=== PATIENT | female | born 1960 | race Caucasian/White ===

== ENCOUNTER → 2021-02-02 09:32 | Outpatient (CLI) | payer OTHER, SELFPAY ==
[2021-02-02 11:25] LABS: COVID19 -Nasal RAPID Negative (Negative)
== END ==
PROVIDERS: Visit Provider Physician Assistant
DX: Z01.812 Encounter for preprocedural laboratory examination (principal); Z20.822 Contact with and (suspected) exposure to COVID-19
CPT/HCPCS: 87635

== ENCOUNTER 2021-02-04 11:48 | Day surgery (SDC) | payer OTHER, SELFPAY ==
--- NOTE | 2021-02-04 11:34 | PM.HP.1 ---
History of Present Illness History of Present Illness Date Patient Seen: 02/04/21 Time Patient Seen: 11:34 Chief complaint: [facility] [place] Narrative: 60 Years Old Female seen today for consideration of a screening colonoscopy. Complaining of constipation x1 year. She does have a bowel movement every day but it is hard. No melena or hematochezia. Associated bloating. Denies mucus. She is not exercising per her normal routine. 1-2 lifetime colonoscopies, reportedly normal, records not available at time of dictation. Otherwise, there have been no lower GI symptoms suggesting disease such as bleeding, abdominal pain or anemia. There's been no family history of colon cancer or colon polyps. Overall health issues have been stable, including no major cardiac events for at least 6 weeks. Past Medical History: Hypothyroidism Hyperlipidemia glaucoma Dyspepsia Hematuria Past Surgical History: Hysterectomy 2008 Toe Surgery Colonoscopy x 2, normal breast augmentation Family History: Father: Parkinson's Mother: at 70- breast cancer, lung cancer, [place] Siblings: Crystal - at 63- pneumonia Flakito-heart disease Jorge- healthy Sister-healthy Social History: Children: 2 Daughters Household Members: Partner Ricky Lopez Home Medications and Allergies Home Medications Medication Instructions Recorded Confirmed Type atorvastatin 40 mg PO DAILY 02/04/21 02/04/21 History Allergies Allergy/AdvReac Type Severity Reaction Status Date / Time No Known Drug Allergies Allergy Verified 02/04/21 12:22 Review of Systems Review of Systems Narrative: See HPI. Exam Narrative Exam Narrative: General: well developed, well nourished, in no acute distress, Head: normocephalic and atraumatic, Lungs: normal respiratory effort, clear bilaterally to auscultation, no wheezes rales or rhonchi. Heart: normal rate and regular rhythm, no murmurs, rubs, gallops, or clicks, Abdomen: abdomen soft and non-tender without masses, organomegaly, or abdominal wall hernias, bowel sounds positive. Skin: intact without suspicious lesions or rashes, Psych: alert and cooperative; normal mood and affect; normal attention span and concentration; cognition, remote and recent memory appear to be intact, Assessment & Plan Assessment & Plan narrative: 1 Screening for colon cancer 2. Constipation Plan: Colonoscopy The nature and character of the procedure as well as anticipated results were discussed. The possibility of not completing the procedure was also discussed. Possible complications including aspiration pneumonia, bleeding, perforation and reaction to medications either for sedation or preparation and missed lesions were discussed. Questions were answered and proceeding to the colonoscopy was elected. Informed consent signed. I sincerely appreciate the referral allowing me to participate in this patient's care. Please contact me with any questions or concerns. Orders:
--- NOTE | 2021-02-04 11:37 | PM.OP.ENDO ---
Operative Date/Time/Diagnoses Date of procedure: 02/04/21 Time of procedure: 11:37 Procedure Notes SCOAP/Timeout: 1:33 p.m. Procedure in detail: ENDOSCOPIST: Sabina Ackerman MD Sedation RN: Prema Madrigal RN Sedation start time: 1:34 p.m. Sedation end time: 1:50 p.m. PROCEDURE: Colonoscopy INDICATIONS: 1. Screening for colon cancer 2. Constipation MEDICATION: Levsin 0.125 mg sublingual, incremental doses of Versed and fentanyl until appropriate level sedation achieved. ASA CLASS: 2 CECAL WITHDRAWAL TIME: 6 minutes COMPLICATIONS: None. EXTENT OF PROCEDURE: Cecum. QUALITY OF PREP: Good with portions of liquid stool. PROCEDURE: Prior to insertion of the colonoscope, a digital rectal examination was accomplished with circumferential palpation of the distal rectal mucosa without significant findings being noted. The high-definition pediatric colonoscope was passed into the rectum in the usual fashion and advanced over to the cecum without difficulty. The ileocecal valve, appendiceal stoma, and medial wall all could be inspected and no abnormalities were seen. ASCENDING COLON: As the colonoscope was withdrawn, care was taken to expose and inspect the haustral folds and no abnormalities were seen. HEPATIC FLEXURE: Normal, no polyps, diverticula or other abnormalities. TRANSVERSE COLON: Normal, no polyps, diverticula or other abnormalities. DESCENDING COLON: Minor diverticulosis, otherwise normal, or other abnormalities. SIGMOID COLON: Minor diverticulosis, otherwise normal, or other abnormalities. RECTUM: Normal. J maneuver was produced. There was no significant perianal disease. The J maneuver was broken. The remainder of the rectum was inspected and there was no external hemorrhoid disease. The scope was withdrawn. IMPRESSION: 1. Normal colonoscopy 2. Minor diverticulosis, left-sided PLAN: 1. Repeat colonoscopy in 10 years. The possibility of a missed lesion including a malignancy has been discussed with the patient previously. Potential alarm symptoms have been discussed and should be reported immediately.
[2021-02-04 12:27] VITALS: BP 143/84; PULSE 72; RESP 16; TEMP 36.3; O2SAT 98; BMI 19.1
[2021-02-04] MEDS: LACTATED RINGERS 1,000 ML 200 ML IV (12:49)
[2021-02-04] MEDS: HYOSCYAMINE 0.125 MG TABLET PO (12:54)
[2021-02-04] MEDS: MIDAZOLAM 5 MG/5 ML VIAL IV (13:37)
[2021-02-04] MEDS: fentaNYL 250 MCG/5 ML INJ IV (13:37)
[2021-02-04 13:56] VITALS: BP 125/98; PULSE 68; RESP 12; TEMP 36.7; O2SAT 97
[2021-02-04 14:01] VITALS: BP 126/82; PULSE 64; RESP 13; O2SAT 96
[2021-02-04 14:06] VITALS: BP 137/73; PULSE 69; RESP 12; O2SAT 97
[2021-02-04 14:11] VITALS: BP 138/63; PULSE 67; RESP 12; TEMP 36.7; O2SAT 97
[2021-02-04 14:14] VITALS: BP 138/73; PULSE 69; RESP 12; TEMP 36.7; O2SAT 97
== END 2021-02-04 14:40 | disposition home or self-care (01) ==
PROVIDERS: Referring Provider Student in an Organized Health Care Education/Training Program; Visit Provider Student in an Organized Health Care Education/Training Program
PROC: 0DJD8ZZ Inspection of Lower Intestinal Tract, Via Natural or Artificial Opening Endoscopic (ICD-10-PCS; CPT 45378; principal; 2021-02-04 13:00)
DX: Z12.11 Encounter for screening for malignant neoplasm of colon (principal); K59.00 Constipation, unspecified; E03.9 Hypothyroidism, unspecified; E78.5 Hyperlipidemia, unspecified; K57.30 Diverticulosis of large intestine without perforation or abscess without bleeding
CPT/HCPCS: 45378; J2250; J3010

== ENCOUNTER 2021-04-18 09:33 | Emergency (ER) | payer OTHER, SELFPAY ==
[2021-04-18 09:46] VITALS: BP 202/93; PULSE 72; RESP 18; TEMP 36.3; O2SAT 98; BMI 20.1
--- NOTE | 2021-04-18 10:04 | DI.CT.S_ITS ---
PROCEDURE: CT HEAD/BRAIN WO CON INDICATIONS: fall hit head 2 weeks ago, now dizziness and more falls left side TECHNIQUE: Noncontrast 4.5 mm thick angled axial sections acquired from the foramen magnum to the vertex, with coronal and sagittal reformats. For radiation dose reduction, the following was used: automated exposure control, adjustment of mA and/or kV according to patient size. COMPARISON: None. FINDINGS: Image quality: Excellent. CSF spaces: Basal cisterns are patent. No extra-axial fluid collections. The ventricles are mildly prominent but symmetric in size and shape. Brain: No intracranial bleeds or masses. There is mild cerebral volume loss for age, with resultant ventricular and sulcal prominence. There are mild periventricular and deep white matter chronic small vessel ischemic changes. There is intracranial internal carotid artery atherosclerosis. Skull and face: Calvarium and visualized facial bones appear intact, without suspicious lesions. Sinuses: Visualized sinuses and mastoids are clear. IMPRESSION: 1. No acute intracranial abnormalities. 2. Cerebral volume loss and chronic microvascular ischemic changes. Dictated by: Thao Jett M.D. on 04/18/2021 at 10:39 Approved by: Thao Jett M.D. on 04/18/2021 at 10:45
[2021-04-18 10:29] LABS: Add Manual Diff / Slide Review NO; Basophils Absolute Auto 0 /uL (0-100); Basophils Percent Auto 0.8 % (0-2); Eosinophils Absolute Auto 200 /uL (0-450); Eosinophils Percent Auto 4.5 % (2-4); Hematocrit 41.9 % (36-46); Lymphocytes Absolute Auto 1400 /uL (1100-4500); Lymphocytes Percent Auto 27.7 % (25-40); Mean Corpuscular HGB Conc 33.5 % (30-36); Mean Corpuscular Hemoglobin 29.8 PG (26-34); Monocytes Absolute Auto 200 /uL (0-900); Neutrophils Absolute Auto 3200 /uL (1500-7000); Platelet Count 186 X10^3/uL (150-400); Prothrombin Time 11.3 SECONDS (10.1-12.7); Red Blood Cell Count 4.71 X10^6/uL (4.0-5.2); Red Cell Distribution Width 13.3 % (11.6-14.8); White Blood Cell Count 5.1 X10^3/uL (4.5-11.0)
[2021-04-18 10:34] LABS: Alanine Aminotransferase 29 IU/L (<35); Albumin 4.5 g/dL (3.5-5.0); Albumin Globulin Ratio 1.7 (1.0-2.8); Alkaline Phosphatase 71 U/L (38-126); Aspartate Aminotransferase 37 IU/L (14-36); BUN Creatinine Ratio 17.5 (6-22); Bilirubin Total 1.3 mg/dL (0.2-1.3); Blood Urea Nitrogen 14 mg/dL (7-17); Calcium 9.7 mg/dL (8.4-10.2); Carbon Dioxide 32 mmol/L (22-32); Chloride 105 mmol/L (98-107); Estimated Glomerular Filt Rate > 60.0 mL/min (>60); Globulin 2.7 g/dL (1.7-4.1); Glucose 95 mg/dL (80-110); HEMOLYSIS < 15 (0-50); Potassium 3.8 mmol/L (3.4-5.1); Sodium 143 mmol/L (137-145); Total Protein 7.2 g/dL (6.3-8.2)
--- NOTE | 2021-04-18 10:38 | ED_ITS ---
HPI - Dizziness General Chief Complaint: Dizziness Stated Complaint: Vertigo x1day Time Seen by Provider: 04/18/21 10:38 Source: patient Mode of arrival: Ambulatory Limitations: no limitations History of Present Illness HPI Narrative: The patient awoke in the middle of the night with dizziness and nausea. She was not previously ill. She had no headache, sinus congestion, or ear discomfort. Other than cerumen issues, she has no chronic ear problems. She has no history of CVA/TIA. She does have hyperlipidemia. She has not experienced chest pain or palpitations with current symptoms. She has no confusion, no visual changes, no peripheral weakness or numbness. Nausea vomiting is relieved by lying still. Related Data Home Medications Medication Instructions Recorded Confirmed atorvastatin 20 mg tablet 20 mg PO BEDTIME 04/18/21 04/18/21 brimonidine 0.2 %-timolol 0.5 % 1 drp EYE-LEFT BID 04/18/21 04/18/21 eye drops (Combigan) latanoprost 0.005 % eye drops 1 drp EYE-LEFT BID 04/18/21 04/18/21 levothyroxine 75 mcg tablet 75 mcg PO QAM 04/18/21 04/18/21 Previous Rx's Medication Instructions Recorded meclizine 25 mg tablet 25 mg PO TID-QID PRN #30 tab 04/18/21 Allergies Allergy/AdvReac Type Severity Reaction Status Date / Time No Known Drug Allergies Allergy Verified 04/18/21 09:52 Review of Systems Constitutional Constitutional: Denies body ache(s), Denies chills, Denies fatigue, Denies fever(s) and Denies weakness Eyes Eyes: Denies change in vision and Denies loss of vision ENT Ears, Nose, Mouth, and Throat: Reports as per HPI and Reports dizziness Cardiovascular Cardiovascular: Denies chest pain, Denies rapid heart rate, Denies irregular heart rhythm and Denies dyspnea Respiratory Respiratory: Denies chest congestion, Denies cough and Denies dyspnea Gastrointestinal Gastrointestinal: Reports as per HPI, Denies abdominal pain, Reports nausea and Reports vomiting Genitourinary Comments: No symptoms. Musculoskeletal Comments: No focal numbness weakness. Neurologic Neurologic: Denies confusion, Reports dizziness, Denies lack of coordination, Denies localized weakness, Denies loss of vision and Denies weakness Psychiatric Psychiatric: Denies confusion Endocrine Endocrine: Denies fatigue Patient History Medical History Glaucoma High cholesterol Hypothyroid Social History household members: significant other Smoking Status: Never smoker alcohol intake: current Smoking Status: Never smoker alcohol intake frequency: holidays/special occasions only Substance Use Type: does not use Exam Initial Vital Signs Initial Vital Signs: Vital Signs Temperature 97.3 F L 04/18/21 09:46 Pulse Rate 72 04/18/21 09:46 Respiratory Rate 18 04/18/21 09:46 Blood Pressure 202/93 H 04/18/21 09:46 Pulse Oximetry 98 04/18/21 09:46 Const General: cooperative, healthy appearing and comfortable HENMT Head: normal to inspection, normocephalic and atraumatic Ears: TM's normal bilaterally Nose: nasal mucous membranes and turbinates normal Face and sinus: normal facial exam Mouth: oral mucosae normal Throat: posterior oropharynx normal Eyes Visual Newton: normal visual newton by confrontation Conjunctivae: conjunctivae normal Sclera: sclerae normal Pupils: PERRL EOM: EOM intact bilaterally Neck Neck: normal visual inspection Chest Chest: normal inspection of the chest Resp Effort & Inspection: normal respiratory effort Auscultation: clear to auscultation bilaterally Cardio Rate: regular rate Rhythm: regular rhythm Heart Sounds: S1 normal, S2 normal and no murmurs GI Inspection: normal to inspection Palpation: soft Auscultation: normal bowel sounds Rectal Exam: visual inspection normal Back/Spine/Pelvis Back: normal to inspection Skin General: no rashes or lesions noted Neuro General: patient alert, patient awake and patient oriented x3 Cranial Nerves: CN's II-XI intact bilaterally Motor: muscle tone normal throughout Sensory Exam: no sensory deficits noted Extrem General: normal to inspection, full ROM and no pedal edema Psych Mental Status: mental status grossly normal Course Course Course Narrative: The patient has improved significantly with meclizine. Her brain CT did revealed microvascular changes, but no acute findings. Labs and EKG findings were otherwise benign. She is discharged on meclizine, with a 2nd recommendation of baby aspirin daily. Orders Ordered: ED Orders 04/18/21 10:04 CT head/brain wo con Stat EKG-12 Lead Stat 04/18/21 10:18 Complete Blood Count AUTO DIFF Stat Comprehensive Metabolic Panel Stat Prothrombin Time INR Stat Troponin I Stat 04/18/21 11:23 Urine Microscopic Stat Discontinued Medications Meclizine HCl (Meclizine Hcl 12.5 Mg Tablet) 50 mg PO NOW ONE Stop: 04/18/21 10:58 Last Admin: 04/18/21 11:08 Dose: 50 mg Documented by: ANNA Vital Signs Vital signs: Vital Signs - 8 hr 04/18/21 09:46 04/18/21 12:10 Temperature 97.3 F L Pulse Rate 72 69 Respiratory Rate 18 Blood Pressure 202/93 H 185/90 H Pulse Oximetry 98 97 MDM - Dizziness Lab Data Result diagrams: 04/18/21 10:18 04/18/21 10:18 Labs: Lab Results 04/18/21 04/18/21 04/18/21 Range/Units 10:18 10:18 10:18 WBC 5.1 (4.5-11.0) X10^3/uL RBC 4.71 (4.0-5.2) X10^6/uL Hgb 14.0 (12.0-16.0) g/dL Hct 41.9 (36-46) % MCV 89.0 (80-100) fL MCH 29.8 (26-34) PG MCHC 33.5 (30-36) % RDW 13.3 (11.6-14.8) % Plt Count 186 (150-400) X10^3/uL Neut % (Auto) 63.0 (50-75) % Lymph % (Auto) 27.7 (25-40) % Harvey % (Auto) 4.0 (3-14) % Eos % (Auto) 4.5 H (2-4) % Baso % (Auto) 0.8 (0-2) % Neut # (Auto) 3200 (8709-4509) /uL Lymph # (Auto) 1400 (5006-4138) /uL Harvey # (Auto) 200 (0-900) /uL Eos # (Auto) 200 (0-450) /uL Baso # (Auto) 0 (0-100) /uL PT 11.3 (10.1-12.7) SECONDS INR 1.0 (0.9-1.3) Sodium 143 (137-145) mmol/L Potassium 3.8 (3.4-5.1) mmol/L Chloride 105 (98-107) mmol/L Carbon Dioxide 32 (22-32) mmol/L BUN 14 (7-17) mg/dL Creatinine 0.80 (0.52-1.04) mg/dL Estimated GFR > 60.0 (>60) mL/min BUN/Creatinine Ratio 17.5 (6-22) Glucose 95 (80-110) mg/dL Calcium 9.7 (8.4-10.2) mg/dL Total Bilirubin 1.3 (0.2-1.3) mg/dL AST 37 H (14-36) IU/L ALT 29 (<35) IU/L Alkaline Phosphatase 71 (38-126) U/L Troponin I < 0.012 (0.01-0.034) ng/mL Total Protein 7.2 (6.3-8.2) g/dL Albumin 4.5 (3.5-5.0) g/dL Globulin 2.7 (1.7-4.1) g/dL Albumin/Globulin Ratio 1.7 (1.0-2.8) Urine RBC (0-5/HPF) Urine WBC (0-5/HPF) Ur Squamous Epith Cells (0-5/HPF) Urine Bacteria (None) Ur Culture Indicated? 04/18/21 Range/Units 11:23 WBC (4.5-11.0) X10^3/uL RBC (4.0-5.2) X10^6/uL Hgb (12.0-16.0) g/dL Hct (36-46) % MCV (80-100) fL MCH (26-34) PG MCHC (30-36) % RDW (11.6-14.8) % Plt Count (150-400) X10^3/uL Neut % (Auto) (50-75) % Lymph % (Auto) (25-40) % Harvey % (Auto) (3-14) % Eos % (Auto) (2-4) % Baso % (Auto) (0-2) % Neut # (Auto) (7309-8053) /uL Lymph # (Auto) (7396-5256) /uL Harvey # (Auto) (0-900) /uL Eos # (Auto) (0-450) /uL Baso # (Auto) (0-100) /uL PT (10.1-12.7) SECONDS INR (0.9-1.3) Sodium (137-145) mmol/L Potassium (3.4-5.1) mmol/L Chloride (98-107) mmol/L Carbon Dioxide (22-32) mmol/L BUN (7-17) mg/dL Creatinine (0.52-1.04) mg/dL Estimated GFR (>60) mL/min BUN/Creatinine Ratio (6-22) Glucose (80-110) mg/dL Calcium (8.4-10.2) mg/dL Total Bilirubin (0.2-1.3) mg/dL AST (14-36) IU/L ALT (<35) IU/L Alkaline Phosphatase (38-126) U/L Troponin I (0.01-0.034) ng/mL Total Protein (6.3-8.2) g/dL Albumin (3.5-5.0) g/dL Globulin (1.7-4.1) g/dL Albumin/Globulin Ratio (1.0-2.8) Urine RBC 0-1/hpf (0-5/HPF) Urine WBC 0-1/hpf (0-5/HPF) Ur Squamous Epith Cells 0-1 /hpf (0-5/HPF) Urine Bacteria Occasional (0-1) (None) Ur Culture Indicated? Cult not indicated Urine Dip Bedside Urine Glucose Negative Bedside Urine Bilirubin - Negative Bedside Urine Ketone - Negative Urine Specific [place] 1.015 Bedside Urine Occult Blood + Bedside Urine pH 6.5 Bedside Urine Protein - Negative Bedside Urine Urobilinogen - Negative Bedside Urine Nitrite - Negative Bedside Urine Leukocytes - Negative Esterase Imaging Data CT scan - head: Radiologist's Impression: Close Head CT (Signed) Eileen Jett - 04/18/21 Launch?[address] [address] [address] Scan Report Signed Patient: Mala Booker MR#: [id number] : 1960 Acct:[id number] Age/Sex: 60 / F Date of Service: 04/18/21 Loc: ED Accession Number: [id number] ?? Procedure: CT head/brain wo con Ordering Provider: Jimbo Cline MD PROCEDURE:? CT HEAD/BRAIN WO CON ? INDICATIONS:? fall ? hit head 2 weeks ago, now dizziness and more falls left side ? TECHNIQUE:? Noncontrast 4.5 mm thick angled axial sections acquired from the foramen magnum to the vertex, with coronal and sagittal reformats.? For radiation dose reduction, the following was used:? automated exposure control, adjustment of mA and/or kV according to patient size.? ? COMPARISON:? None. ? FINDINGS:? Image quality:? Excellent.? ? CSF spaces:? Basal cisterns are patent.? No extra-axial fluid collections.? The ventricles are mildly prominent but symmetric in size and shape.? ? Brain:? No intracranial bleeds or masses.? There is mild cerebral volume loss for age, with resultant ventricular and sulcal prominence.? There are mild periventricular and deep white matter chronic small vessel ischemic changes.? There is intracranial internal carotid artery atherosclerosis.? ? Skull and face:? Calvarium and visualized facial bones appear intact, without suspicious lesions.? ? Sinuses:? Visualized sinuses and mastoids are clear.? ? IMPRESSION:? ? 1. No acute intracranial abnormalities. ? 2. Cerebral volume loss and chronic microvascular ischemic changes. ? ? ? Dictated by: Thao Jett M.D. on 04/18/2021 at 10:39 ? ? Approved by: Thao Jett M.D. on 04/18/2021 at 10:45 ? ECG Data Attestation: I personally reviewed and interpreted this ECG as follows: (Normal sinus rhythm rate 63 beats per minute. Poor R-wave progression to the anterior leads. Normal intervals. No ectopy. No acute ST T wave changes.) Discharge Plan Departure Patient Disposition: Home Clinical Impression: Labyrinthitis Instructions: Labyrinthitis Activity Restrictions/Additional Instructions: Meclizine every 6 hours as needed for dizziness or nausea. The Meclizine has been forwarded to [facility], and cords. I would suggest 1 baby aspirin daily. Follow-up with your doctor for ongoing care. Return as needed. Prescriptions: New meclizine 25 mg tablet 25 mg PO TID-QID PRN (Reason: dizziness) Qty: 30 RF: 0 No Action latanoprost 0.005 % drops 1 drp EYE-LEFT BID RF: 0 atorvastatin 20 mg tablet 20 mg PO BEDTIME RF: 0 levothyroxine 75 mcg tablet 75 mcg PO QAM RF: 0 Combigan 0.2-0.5 % drops 1 drp EYE-LEFT BID RF: 0
[2021-04-18 10:45] LABS: Troponin I < 0.012 ng/mL (0.01-0.034)
[2021-04-18] MEDS: MECLIZINE HCL 12.5 MG TABLET 50 MG PO (11:08)
[2021-04-18 11:52] LABS: Bacteria Urine Occasional (0-1); Culture Indicated Urine Cult Not Indicated; RBC Urine 0-1/HPF (0-5/HPF); Squamous Epithelial Cell Urine 0-1 /HPF (0-5/HPF); WBC Urine 0-1/HPF (0-5/HPF)
[2021-04-18 12:10] VITALS: BP 185/90; PULSE 69; O2SAT 97
== END 2021-04-18 12:50 | disposition home or self-care (01) ==
PROVIDERS: Emergency Provider Emergency Medicine
DX: H83.09 Labyrinthitis, unspecified ear (principal); R42 Dizziness and giddiness; R11.2 Nausea with vomiting, unspecified
CPT/HCPCS: 36415; 70450; 80053; 81003; 81015; 84484; 85025; 85610; 93005; 93010; 99284

== ENCOUNTER → 2021-12-08 14:22 | Outpatient (CLI) | payer OTHER, SELFPAY ==
--- NOTE | 2021-12-08 | DI.MG.S_ITS ---
BILATERAL DIGITAL SCREENING MAMMOGRAM 3D/2D WITH CAD WITH AUGMENTATION: 12/08/2021 CLINICAL: Patient presents for routine screening. S/P bilateral augmentation. Comparison is made to exams dated: 12/01/2019 mammogram, 11/26/2018 mammogram, and 11/26/2017 mammogram - Outside facility. The tissue of both breasts is heterogeneously dense. This may lower the sensitivity of mammography. Current study was also evaluated with a Computer Aided Detection (CAD) system. Bilateral breast implants are stable. No significant masses, calcifications, or other findings are seen in either breast. There has been no significant interval change. IMPRESSION: NEGATIVE There is no mammographic evidence of malignancy. A 1 year screening mammogram is recommended. Based on the Tyrer Cuzick model (a risk assessment model) the patient's lifetime risk is 9.1% and her 10 year risk is 4.1%. According to the ACR, ACS, and NCCN guidelines, an annual breast MRI exam along with mammogram is recommended if the patient's lifetime risk is 20% or greater. This exam was interpreted at Station ID: [id number]. NOTE: For mammograms, a report in lay terms will be sent to the patient. Approximately 15% of breast malignancies will not be visualized mammographically. In the management of a palpable breast mass, a negative mammogram must not discourage biopsy of a clinically suspicious lesion. Electronically Signed By: Lior neely/juanpablo:12/08/2021 15:11:04 letter sent: Normal Exam ACR BI-RADS Category 1: Negative 3341F
== END ==
PROVIDERS: PCP Internal Medicine; Referring Provider Internal Medicine; Visit Provider Internal Medicine
DX: Z12.31 Encounter for screening mammogram for malignant neoplasm of breast (principal); Z98.82 Breast implant status
CPT/HCPCS: 77063; 77067

== ENCOUNTER → 2023-02-16 10:57 | Outpatient (CLI) | payer OTHER, SELFPAY ==
--- NOTE | 2023-02-16 | DI.MG.S_ITS ---
BILATERAL DIGITAL SCREENING MAMMOGRAM 3D/2D WITH CAD WITH AUGMENTATION: 02/16/2023 CLINICAL: Routine screening. Family history of breast cancer. Comparison is made to exams dated: 12/08/2021 mammogram - [facility], 12/01/2019 mammogram, and 11/26/2018 mammogram - Outside facility. Both breasts are heterogeneously dense, which may obscure small masses (category c / 51-75% glandular tissue). Current study was also evaluated with a Computer Aided Detection (CAD) system. Bilateral breast implants are stable. No significant masses, calcifications, or other findings are seen in either breast. There has been no significant interval change. IMPRESSION: NEGATIVE There is no mammographic evidence of malignancy. A 1 year screening mammogram is recommended. Based on the Tyrer Cuzick model (a risk assessment model) the patient's lifetime risk is 8.8% and her 10 year risk is 4.1%. According to the ACR, ACS, and NCCN guidelines, an annual breast MRI exam along with mammogram is recommended if the patient's lifetime risk is 20% or greater. This exam was interpreted at Station ID: [id number]. NOTE: For mammograms, a report in lay terms will be sent to the patient. Approximately 15% of breast malignancies will not be visualized mammographically. In the management of a palpable breast mass, a negative mammogram must not discourage biopsy of a clinically suspicious lesion. Electronically Signed By: Lior neely/juanpablo:02/16/2023 16:16:55 letter sent: Normal Exam ACR BI-RADS Category 1: Negative 3341F
== END ==
PROVIDERS: PCP Internal Medicine; Referring Provider Internal Medicine; Visit Provider Internal Medicine
DX: Z12.31 Encounter for screening mammogram for malignant neoplasm of breast (principal)
CPT/HCPCS: 77063; 77067

== ENCOUNTER → 2023-08-20 16:55 | Outpatient (CLI) | payer OTHER, SELFPAY ==
--- NOTE | 2023-08-20 | DI.RAD.S_ITS ---
PROCEDURE: XR LUMBAR SPINE 2-3V INDICATIONS: BACK PAIN TECHNIQUE: 3 views of the lumbar spine were acquired. COMPARISON: None. FINDINGS: Bones: 5 [id number] vertebrae are present. There is normal bony alignment. No vertebral body compression fractures. Minimal degenerative changes. No suspicious bony lesions. Soft tissues: Overlying bowel gas pattern is normal. No suspicious soft tissue calcifications. IMPRESSION: Minimal degenerative changes in the lumbar spine. Dictated by: Case Chavez M.D. on 08/21/2023 at 8:56 Approved by: Case Chavez M.D. on 08/21/2023 at 8:57
--- NOTE | 2023-08-20 | DI.RAD.S_ITS ---
PROCEDURE: XR CERVICAL SPINE 2V OR 3V INDICATIONS: BACK PAIN TECHNIQUE: 3 view(s) of the cervical spine were acquired. COMPARISON: [facility], CR, XR THORACIC SPINE 2V, 08/20/2023, 16:59. FINDINGS: Bones: No fractures or dislocations to the T1 level. The lateral masses of C1 appear intact on the odontoid view. Disc space height loss. Minimal height loss at C4. Osteophytosis most pronounced at C3-C4. Ankylosis suspected at C5-C6. No suspicious bony lesions. Soft tissues: No prevertebral soft tissue swelling. IMPRESSION: Severe degenerative change in the cervical spine. Dictated by: Case Chavez M.D. on 08/21/2023 at 8:51 Approved by: Case Chavez M.D. on 08/21/2023 at 8:54
--- NOTE | 2023-08-20 | DI.RAD.S_ITS ---
PROCEDURE: XR THORACIC SPINE 2V INDICATIONS: BACK PAIN TECHNIQUE: 2 views of the thoracic spine were acquired. COMPARISON: [facility], CR, XR LUMBAR SPINE 2-3V, 08/20/2023, 16:59. FINDINGS: Bones: No fractures or dislocations. No suspicious bony lesions. Minimal scoliosis. Minimal degenerative change. 12 pairs of ribs are noted, and appear intact where visualized. Soft tissues: No paravertebral stripe thickening. IMPRESSION: Minimal scoliosis and degenerative change in the thoracic spine. Dictated by: Case Chavez M.D. on 08/21/2023 at 8:54 Approved by: Case Chavez M.D. on 08/21/2023 at 8:56
== END ==
PROVIDERS: PCP Internal Medicine; Referring Provider Internal Medicine; Visit Provider Internal Medicine
DX: M47.812 Spondylosis without myelopathy or radiculopathy, cervical region (principal); M54.2 Cervicalgia; M54.50 Low back pain, unspecified; M54.9 Dorsalgia, unspecified
CPT/HCPCS: 72040; 72070; 72100

== ENCOUNTER → 2024-02-21 15:23 | Outpatient (CLI) | payer OTHER, SELFPAY | PROVIDERS: PCP Internal Medicine; Visit Provider Nurse Practitioner Family | DX: J02.9 Acute pharyngitis, unspecified (principal) | CPT/HCPCS: 87070 ==

== ENCOUNTER → 2024-03-17 15:13 | Outpatient (CLI) | payer OTHER, SELFPAY ==
--- NOTE | 2024-03-17 | DI.MG.S_ITS ---
BILATERAL DIGITAL SCREENING MAMMOGRAM 3D/2D WITH CAD WITH AUGMENTATION: 03/17/2024 CLINICAL: Routine screening. Family history of breast cancer. Comparison is made to exams dated: 02/16/2023 mammogram, 12/08/2021 mammogram - [facility], and 12/01/2019 mammogram - Outside facility. The breasts are heterogeneously dense, which may obscure small masses (category c / 51-75% glandular tissue). Current study was also evaluated with a Computer Aided Detection (CAD) system. Bilateral breast implants are stable. There are benign vascular calcifications in both breasts. No significant masses, calcifications, or other findings are seen in either breast. There has been no significant interval change. IMPRESSION: BENIGN There is no mammographic evidence of malignancy. A 1 year screening mammogram is recommended. Based on the Tyrer Cuzick model (a risk assessment model) the patient's lifetime risk is 8.4% and her 10 year risk is 4.1%. According to the ACR, ACS, and NCCN guidelines, an annual breast MRI exam along with mammogram is recommended if the patient's lifetime risk is 20% or greater. This exam was interpreted at Station ID: [id number]. NOTE: For mammograms, a report in lay terms will be sent to the patient. Approximately 15% of breast malignancies will not be visualized mammographically. In the management of a palpable breast mass, a negative mammogram must not discourage biopsy of a clinically suspicious lesion. Electronically Signed By: Caprice ortiz/juanpablo:03/18/2024 18:18:49 letter sent: Normal Exam ACR BI-RADS Category 2: Benign
--- NOTE | 2024-03-17 | DI.MRI.S_ITS ---
PROCEDURE: MR HEAD/BRAIN WO/W CON INDICATIONS: memory loss after injury to head TECHNIQUE: Noncontrast axial T1 spin echo, axial T2 fast spin echo, sagittal and axial FLAIR, coronal T2 fast spin echo, axial gradient echo, axial diffusion and ADC through the brain. After the administration of contrast, axial and coronal and sagittal 3D VIBE or T1 spin echo with fat saturation through the brain. COMPARISON: [facility], CT, CT HEAD/BRAIN WO CON, 04/18/2021, 11:29. FINDINGS: Image quality: Excellent. CSF Spaces: Basal cisterns are patent. No extra-axial fluid collections. Ventricles are normal in size and shape. Brain: No midline shift. No intracranial bleeds or masses. No abnormal intracranial enhancement. The brainstem appears normal. Diffusion-weighted images demonstrate no acute infarct. No chronic ischemic insults. Normal intravascular flow voids are present. Skull and face: Calvarial marrow is normal in signal. Orbits appear normal. Sinuses: Sinuses and mastoids appear clear. IMPRESSION: No acute intracranial process. Very minimal scattered areas of periventricular and subcortical white matter hyperintensities suspected to represent early changes of chronic microvascular ischemia. Dictated by: Silvia Grady M.D. on 03/17/2024 at 17:33 Approved by: Silvia Grady M.D. on 03/17/2024 at 17:34
== END ==
LOC: MRI 15:13
PROVIDERS: PCP Internal Medicine; Referring Provider Internal Medicine; Visit Provider Internal Medicine
DX: R41.3 Other amnesia (principal); Z12.31 Encounter for screening mammogram for malignant neoplasm of breast; Z80.3 Family history of malignant neoplasm of breast; R92.333 Mammographic heterogeneous density, bilateral breasts; Z87.828 Personal history of other (healed) physical injury and trauma
CPT/HCPCS: 70553; 77063; 77067; A9579